=== PATIENT | male | born 1970 | race Caucasian/White ===

== ENCOUNTER 2018-04-15 16:36 | Emergency (ER) | payer OTHER ==
[~2018-04-15] VITALS: Ht 165.1 cm; Wt 60.4 kg
[2018-04-15 17:15] VITALS: Ht 165.1 cm; Wt 60.4 kg
[2018-04-15 18:09] LABS: PLATELET COUNT 194 x10^3mcL (130-400); RED CELL DISTRIBUTION WIDTH 12.7 % (11.5-14.5)
[2018-04-15 18:19] LABS: CALCIUM 8.7 mg/dL (8.5-10.1); CARBON DIOXIDE 26.2 mmol/L (21-32); CREATININE SERUM 1.4 mg/dL (0.7-1.3); POTASSIUM SERUM 5.4 mmol/L (3.5-5.1)
[2018-04-15 18:24] LABS: BILIRUBIN TOTAL 0.43 mg/dL (0.20-1.00); TOTAL PROTEIN, SERUM 7.2 g/dL (6.4-8.2)
[2018-04-15 18:27] LABS: ALBUMIN 3.3 g/dL (3.4-5.0)
[2018-04-15 18:39] LABS: BAND NEUTROPHIL 16 % (0-10); BASOPHIL 0 % (0-2); MONOCYTE 2 % (0-7); SEGMENTED NEUTROPHILS 81 % (37-75)
[2018-04-15 18:40] LABS: PLATELET MORPHOLOGY PLATELETS NORMAL; rbc morphology (normal/abnorm) NORMAL (NORMAL)
[2018-04-15 20:35] VITALS: BP 118/79
== END 2018-04-15 20:35 | disposition home or self-care (01) ==
LOC: ED 16:36
PROVIDERS: Emergency Medicine
DX: K52.9 Noninfective gastroenteritis and colitis, unspecified (principal); T62.0X1A Toxic effect of ingested mushrooms, accidental (unintentional), initial encounter; E11.9 Type 2 diabetes mellitus without complications; Y92.89 Other specified places as the place of occurrence of the external cause
CPT/HCPCS: J2405; J7030